=== PATIENT | male | born 1940 | race Caucasian/White ===

== ENCOUNTER 2017-07-18 10:13 | Emergency (ER) | payer OTHER ==
[2017-07-18 10:20] VITALS: BP 155/74; TEMP 97.7; BMI 32.5
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
== END 2017-07-18 12:02 | disposition home or self-care (01) ==
LOC: ED 10:13
DX: M54.5 Low back pain (principal); R07.89 Other chest pain; R10.9 Unspecified abdominal pain; V89.2XXA Person injured in unspecified motor-vehicle accident, traffic, initial encounter; Q61.01 Congenital single renal cyst
CPT/HCPCS: 99283

== ENCOUNTER 2017-10-29 15:00 | Outpatient (RCR) ==
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
--- NOTE | 2017-10-24 11:30 | RS.OPPTDN ---
Subjective Date of Note: 10/24/17 Visit #: 2 Date of Evaluation: 10/22/17 Payer Source: MEDICARE Treatment Diagnosis: numbness of arm and numbness and tingling R LE Current Subjective/complaints:: Patient says his neck and back pain is not high today. Reports he has tried stretches at home. Presents with his today. *Precautions: n/a - Treatment Modality: Electrical Stim Unattended Parameters/Method Applied: IFC @ 13 ma x 20 mins to the bilateral UT. Hivolt @ 120 pk volts channel 1 for the L lumbar paraspinals and channel 2 for the R lumbar paraspinals x 20 mins Patient Position: Sitting - Heat/Cryotherapy Treatment: Hot Pack (cervical and low back) Interventions - Exercise/Activities/Manual Therapy Exercises/Activities: Patient receives passive cervical stretching into SB and rotation,levator scap x 4 bilaterally. Isometric neck retraction x 5, shoulder shrugs and scap adduction x 8. Supine: bilateral SKTC, HS, Piriformis, Figure 4, lower trunk rotation to the L x 3. Began patient education of diagnosis, HEP , explanation of exercises today, and body mechanics. Total minutes of Exercise: 23 Manual Therapy: n/a HOME EXERCISE PROGRAM: pt given written HEP including: cervical retraction, corner stretch, hamstring stretch, piriformis stretch, scapular retraction with green t band - Charges Timed Code Treatment Minutes: 23 Total Treatment Time: 45 Procedures billed for this date of service:: hp, henrik (un), ex2 Assessment: Patient presents with low level pain today to cervical and low back , but demo moderate muscle guarding to both areas and intermittent numbness to the R UE while sitting for treatment. He admits modalities and exercise relieved tightness today. He demo the need to have assisted stretching and strengthening for postural muscles along with stretching and strengthening to the lumbar region as well. He has begun HEP and should benefit from further sessions. 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
--- NOTE | 2017-10-27 11:30 | RS.OPPTDN ---
Subjective Date of Note: 10/27/17 Visit #: 3 Date of Evaluation: 10/22/17 Payer Source: MEDICARE Treatment Diagnosis: numbness of arm and numbness and tingling R LE Current Subjective/complaints:: Patient says his neck and back has not been bothering him much over the weekend. Does not offer any specific info or c/o's. *Precautions: n/a Pain Assessment - Pain Description Pain Location: both sides of neck, R low back and tingling to R LE intermittently - Treatment Modality: Electrical Stim Unattended Parameters/Method Applied: Hivolt: bilateral UT 2 small, 2 large pads (@ 170 pk volts). bilateral lumbar paraspinals electrodes vertically 4 large pads @ 200 pk volts x 20 mins Patient Position: Sitting - Heat/Cryotherapy Treatment: Hot Pack (cervical and mid to low back) Interventions - Exercise/Activities/Manual Therapy Exercises/Activities: Patient receives passive cervical stretching into SB and rotation,levator scap x 4 bilaterally. Isometric neck retraction x 5, shoulder shrugs and scap adduction x 8. Supine: bilateral SKTC, HS, Piriformis, Figure 4, lower trunk rotation to the L x 3. Continued with patient education of diagnosis, HEP, explanation of exercises today, and body mechanics. Total minutes of Exercise: 25 Manual Therapy: n/a HOME EXERCISE PROGRAM: pt given written HEP including: cervical retraction, corner stretch, hamstring stretch, piriformis stretch, scapular retraction with green t band - Charges Timed Code Treatment Minutes: 25 Total Treatment Time: 45 Procedures billed for this date of service:: hp, estim (un), ex2 Assessment: Patient experiencing less pain to the neck and back. He appears to ritika all stretching to both areas well and without c/os. He continues to need postural strengthening and LE flexibility to improve ambulation and pain due to muscle tightness. 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
--- NOTE | 2017-10-29 16:16 | RS.OPPTDN ---
Subjective Date of Note: 10/29/17 Visit #: 4 Date of Evaluation: 10/22/17 Payer Source: MEDICARE Treatment Diagnosis: numbness of arm and numbness and tingling R LE Current Subjective/complaints:: Patient says he believes treatment is helping his neck and back pain. He does not rate or describe his symptoms only to say his R side of his back is hurting worse than L. *Precautions: n/a - Treatment Modality: Electrical Stim Unattended Parameters/Method Applied: hivolt 2 small pads and 2 large to the bilateral UT @ 150 pk volts, 4 large to the lumbar paraspinals @ 185 pk volts running vertically Patient Position: Sitting - Heat/Cryotherapy Treatment: Hot Pack (neck and back) Interventions - Exercise/Activities/Manual Therapy Exercises/Activities: Patient receives passive cervical stretching into SB and rotation,levator scap x 4 bilaterally. Isometric neck retraction 2x 5, lateral SB bilaterally x 5. Shoulder shrugs and scap adduction x 8. 3# wand for bilateral shoulder flexion with wand, green tband for scap retraction x 10. Supine: bilateral SKTC, HS, Piriformis, Figure 4, lower trunk rotation to the L x 3. Began ball squeezes for isometric hip add x 10. Pt education of HEP and various exercises performed today. Discussed with about continuing therapy and seeking order ~2 more weeks if Mr. Rogers felt he would like to do so. Total minutes of Exercise: 27 Manual Therapy: n/a HOME EXERCISE PROGRAM: pt given written HEP including: cervical retraction, corner stretch, hamstring stretch, piriformis stretch, scapular retraction with green t band - Charges Timed Code Treatment Minutes: 27 Total Treatment Time: 47 Procedures billed for this date of service:: hp, estim (un), ex2 Assessment: Patient admits greater improvement seen with pain to his neck more than back, but has also admitted pain is less frequent and intense to the R upper leg. He demo continued moderate muscle guarding to the mid to low back with milder tone to the bilateral UT. He performs all therex correctly and with improved ease and flexibility. He would benefit from receiving order to continue ~2 more weeks to progress neck and back. Patient Education: Education of diagnosis, Body/Joint mechanics, Home Exercise Program, Education of Plan of Care Patient demonstrates compliance with HEP?: Yes Short Term Goals Goal #1: pt with no reports of pain in cervical/lumbar spine with activity Goal to be met by: 10/24/17 Progress towards Goal:: Partially Met Comments:: This is less in intensity Goal #2: pt independent with initial HEP Goal to be met by: 10/24/17 Progress towards Goal:: Partially Met Comments:: With original HEP, additions have been made. 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 He will let us know by Friday if we need to call for orders or discharge.
== END 2017-10-31 23:59 ==
PROVIDERS: ATTEND Nurse Practitioner Family
DX: R20.0 Anesthesia of skin (principal); R20.2 Paresthesia of skin; M62.89 Other specified disorders of muscle